=== PATIENT | female | born 1970 | race Caucasian/White ===

== ENCOUNTER 2018-10-13 17:59 | Emergency (ER) | payer BC, OTHER ==
[2018-10-13 18:21] VITALS: BP 125/68
[2018-10-13] MEDS ORDERED: Albuterol 2.5 MG/3 ML NEB.SOL* (0.083%) INH ONE (18:30)
[2018-10-13] MEDS ORDERED: methylPREDNISolone 125 MG* 2 ML VIAL IM ONE (18:30)
--- NOTE | 2018-10-13 18:39 | UC ---
General HPI - HPI Summary HPI Summary: PER TRIAGE, STARTED SUNDAY, SORE THROAT AND COLD. FEVER UNTIL SUNDAY. SAW PCP SUNDAY AND DX VIRAL ILLNESS. TODAY COUGH/COUGHING SPASM WORSE. THE SORE THROAT IS GONE AND NASAL CONGESTION HAS IMPROVED. NO ASTHMA OR COPD. - History of Current Complaint Chief Complaint: UCRespiratory Stated Complaint: COUGH/CONGESTION Time Seen by Provider: 10/13/18 18:12 Hx Obtained From: Patient Hx Last Menstrual Period: 10/08/18 Onset/Duration: Gradual Onset Timing: Constant Pain Intensity: 0 Associated Signs & Symptoms: Negative: Chest Pain, Fever - Allergy/Home Medications Allergies/Adverse Reactions: Allergies Allergy/AdvReac Type Severity Reaction Status Date / Time amoxicillin Allergy Rash Verified 10/13/18 18:17 cephalexin [From Keflex] Allergy Hives Verified 10/13/18 18:17 corn Allergy Anaphylatic Verified 10/13/18 18:18 Shock loratadine [From Claritin] Allergy See Comment Verified 10/13/18 18:17 Sulfa (Sulfonamide Allergy Rash Verified 10/13/18 18:17 Antibiotics) sulfamethoxazole Allergy Rash Verified 10/13/18 18:17 [From Bactrim] trimethoprim [From Bactrim] Allergy Rash Verified 10/13/18 18:17 PMH/Surg Hx/FS Hx/Imm Hx - Additional Past Medical History Additional PMH: WHEAT ALLERGY - Surgical History Surgical History: Yes Surgery Procedure, Year, and Place: 1990-ECTOPIC --RIGHT SALPINGECTOMY - Family History Known Family History: Positive: Non-Contributory - Social History Occupation: Employed Full-time Alcohol Use: Occasionally Substance Use Type: None Smoking Status (MU): Never Smoked Tobacco Review of Systems All Other Systems Reviewed And Are Negative: Yes Constitutional: Negative: Fever ENT: Positive: Sinus Congestion Respiratory: Positive: Shortness Of Breath, Cough Cardiovascular: Negative: Chest Pain Physical Exam Triage Information Reviewed: Yes Appearance: Well-Appearing Vital Signs: Initial Vital Signs Temp 99.4 F 10/13/18 18:18 Pulse 109 10/13/18 18:18 Resp 16 10/13/18 18:18 BP 125/68 10/13/18 18:18 Pulse Ox 100 10/13/18 18:18 Vital Signs Reviewed: Yes Eyes: Positive: Conjunctiva Clear ENT: Positive: Pharynx normal, Nasal congestion, Nasal drainage - CLEAR, TMs normal Neck: Positive: Supple, Nontender, No Lymphadenopathy Respiratory: Positive: No respiratory distress, Decreased breath sounds, Other: - NPC Cardiovascular: Positive: RRR, No Murmur Abdomen Description: Positive: Nontender, No Organomegaly, Soft Bowel Sounds: Positive: Present Musculoskeletal: Positive: ROM Intact, No Edema Neurological: Positive: Alert Psychological: Positive: Age Appropriate Behavior Skin Exam: Normal Re-Evaluation - Re-Evaluation First Eval Re-Evaluation Time: 19:08 Change: Improved - better aeration. lungs clear Course/Dx - Differential Dx - Multi-Symptom Differential Diagnoses: Other - no concern for PE, pneumonia and no indication for antibiotics. - Diagnoses Provider Diagnosis: URI (upper respiratory infection), Bronchitis Discharge - Sign-Out/Discharge Documenting (check all that apply): Patient Departure All imaging exams completed and their final reports reviewed: No Studies - Discharge Plan Condition: Stable Disposition: HOME Prescriptions: predniSONE [Prednisone 20 MG TAB] 40 mg PO DAILY 3 Days #6 tablet Patient Education Materials: Upper Respiratory Infection (DC), Acute Bronchitis (ED) Forms: *Work Release Referrals: David KERNS MOGUL OPERATORJanelle [Primary Care Provider] - 5 Days - Billing Disposition and Condition Condition: STABLE Disposition: Home
[2018-10-13] MEDS ORDERED: Albuterol HFA INHALER* 8 gm MDI INH ONE (19:11)
== END 2018-10-13 19:28 | disposition home or self-care (01) ==
LOC: UCCORT 17:59
DX: J06.9 Acute upper respiratory infection, unspecified (principal); J40 Bronchitis, not specified as acute or chronic; Z88.0 Allergy status to penicillin; Z88.2 Allergy status to sulfonamides; Z91.018 Allergy to other foods; Z88.8 Allergy status to other drugs, medicaments and biological substances; Z88.1 Allergy status to other antibiotic agents
CPT/HCPCS: 96372; 99203; A9270-GY; G0463; J2930